=== PATIENT | male | born 1985 | race Caucasian/White ===

== ENCOUNTER 2018-04-22 02:13 | Emergency (ER) | payer OTHER ==
[~2018-04-22] VITALS: Ht 190.5 cm; Wt 115.7 kg
[2018-04-22] MEDS ORDERED: ASPIR 8181 MG (02:27)
[2018-04-22] MEDS ORDERED: UNICOMPLEX M TA1 TA1 (02:28)
[2018-04-22] MEDS ORDERED: ERYTHROMYCIN E3.5 G2 INTRAOCULR (03:02)
[2018-04-22 03:10] VITALS: BP 143/75
== END 2018-04-22 03:10 | disposition home or self-care (01) ==
LOC: M.ERS 02:13
DX: S05.01XA Injury of conjunctiva and corneal abrasion without foreign body, right eye, initial encounter (principal); I10 Essential (primary) hypertension; F17.210 Nicotine dependence, cigarettes, uncomplicated; W22.8XXA Striking against or struck by other objects, initial encounter; Y93.89 Activity, other specified; Y92.89 Other specified places as the place of occurrence of the external cause; Y99.8 Other external cause status